=== PATIENT | female | born 1955 | race Caucasian/White ===

== ENCOUNTER 2016-07-05 20:10 | Emergency (ER) | payer OTHER ==
[2016-07-05] MEDS ORDERED: fentaNYL Inj 100 MCG/2 ML VIAL IVP ONE (20:27)
[2016-07-05] MEDS ORDERED: fentaNYL Inj 100 MCG/2 ML VIAL ONE (20:30)
[2016-07-05] MEDS ORDERED: ONDANSETRON 4 MG/2 ML VIAL ONE (20:30)
[2016-07-05] MEDS ORDERED: ONDANSETRON 4 MG/2 ML VIAL IVP ONE (20:35)
[2016-07-05 20:46] LABS: BASOPHILS # (AUTO) 0.05 10*3/UL; BASOPHILS % (AUTO) 0.6 % (0-1); EOSINOPHILS # (AUTO) 0.19 10*3/UL; EOSINOPHILS % (AUTO) 2.4 % (0-8); HEMOGLOBIN 16.5 g/dL (12.0-16.0); LYMPHOCYTES # (AUTO) 2.64 10*3/uL; MEAN CORPUSCULAR HEMOGLOBIN 30.3 PG (27-31); MEAN CORPUSCULAR HGB CONC 33.7 g/dL (33-37); MEAN CORPUSCULAR VOLUME 89.9 FL (81-99); MEAN PLATELET VOLUME 11.4 FL (7.4-12.2); MONOCYTES # (AUTO) 0.64 10*3/UL (0.3-0.8); MONOCYTES % (AUTO) 8.2 % (5-15); NEUTROPHILS # (AUTO) 4.22 10*3/UL; NEUTROPHILS % (AUTO) 54.5 % (50-80); RED BLOOD COUNT 5.45 10^6/uL (4.20-5.40)
[2016-07-05 20:49] LABS: PLATELET MORPHOLOGY COMMENT NORMAL MORPHOLOGY (NORM); RBC MORPHOLOGY COMMENT NORMAL MORPHOLOGY (NORM); WBC MORPHOLOGY COMMENT NORMAL MORPHOLOGY (NORM)
[2016-07-05 20:58] LABS: BLOOD UREA NITROGEN 14 mg/dL (7-22); CALCIUM 9.3 mg/dL (8.7-10.7); EST GLOMERULAR FILTRATION > 60 (>60 ml/min/1.73m(2)); SERUM ALBUMIN 3.8 g/dL (3.5-4.8)
--- NOTE | 2016-07-05 21:24 | PDOC ---
Gen Adult / Medical Screen HPI - General Chief Complaint: General Medical Stated Complaint: Right lower back pain Date Seen by Provider: 07/05/16 Time Seen by Provider: 21:05 Source: POSITIVE: Patient Exam Limitations: POSITIVE: Clinical condition Nurse's Notes Reviewed & Considered: Yes EMS Report Reviewed & Considered: Verbal - History of Present Illness Initial Comments: Vannessa is a 60-year-old female who presents to the emergency department for evaluation of pain. Patient reports that she was having pain mostly in the right flank. This seems to have started since a fall about one month prior. It 's been intermittent. It was worse today. Right sided. Radiates down. Stabbing. Sharp and severe. Patient put she was unable to get up today and called the ambulance for help getting up and they brought her to the emergency department. There are no relieving factors but it is worse with movement. Patient denies any dysuria urgency or frequency. Denies any hematuria. Patient denies any chest or abdominal pain. She does have a history of a long- standing hernia that is largely unchanged. The patient is a poor historian - Patient Home Medications Home Medications: Home Medications Diaper,Brief,Adult, Disposable [Adult Brief] 1 each MC PRN #1 each 10/08/15 Metoprolol Tartrate 0.5 tab PO QID #180 tab 10/08/15 Mometasone Furoate [Nasonex] 2 spr INASL DAILY #1 spr 12/10/15 Cyclobenzaprine HCl [Flexeril] 5 mg PO TID PRN #12 tablet 07/06/16 HYDROcodone/APAP 5/325 Tab [[place] 5/325 Tab] 1 tab PO Q6H PRN #12 tab 07/06/16 - Patient Allergies Allergies/Adverse Reactions: Allergies Allergy/AdvReac Type Severity Reaction Status Date / Time codeine Allergy hives Verified 07/05/16 20:26 Sulfa (Sulfonamide Allergy HIVES Verified 07/05/16 20:26 Antibiotics) Past Medical History - heen HEENT History: Denies History Cardiovascular History: Hypertension, Arrhythmia, Other (please comment) ( Peripheral vascular disease) Respiratory History: Denies History Gastrointestinal History: Denies History Genitourinary History: Denies History Endocrine History: Denies History Musculoskeletal History: Denies History Neurological History: Denies History Blood Disorders: Denies History Psychiatric History: Denies History Cancer History: Denies History History of MDRO: No Alcohol Use: None Substance Use Type: None Previous Surgical History: Yes Type / Date of Surgery: TUBAL Anesthesia Reactions: No Malignant Hyperthermia: No Significant Family History: No pertinent family hx Past Medical History Reviewed: Reviewed - Changes Made ROS - Limitations ROS Limitations: Clinical Condition Constitution: REPORTS: Denies Symptoms Cardiovascular: REPORTS: Denies Cardiac Symptoms Respiratory: REPORTS: Denies Resp Symptoms Neurological: REPORTS: Denies Neuro Symptoms Gastrointestinal: REPORTS: Denies GI Symptoms Endocrine: REPORTS: Denies Symptoms Musculoskeletal: REPORTS: Other (Right flank pain) Genitourinary: REPORTS: Denies Symptoms Eyes: REPORTS: Denies Symptoms ENT: REPORTS: Denies Symptoms Skin: REPORTS: Denies Skin Symptoms Immunologic: POSITIVE: Denies Symptoms Gen Adult/Medical Screen Exam - General Appearance General Appearance: POSITIVE: Anxious, Mild Distress - HEENT HEENT: POSITIVE: Head Inspection Nml, Eyes Inspection Nml, Pharynx Inspect. Nml - Pupils Pupil Size: 4 mm: Bilateral - Neck Neck: POSITIVE: Normal Inspection, Other (No tenderness to palpation). NEGATIVE : Stiff Neck - Respiratory Respiratory: POSITIVE: No Respiratory Distress, Breath Sounds Normal - Cardiovascular Cardiovascular: POSITIVE: Regular Rate & Rhythm, No Murmur, No Gallop - Abdomen Additional Abdominal Details: There is a large abdominal hernia. No tenderness to palpation. Normal bowel sounds. No rebound no guarding. - Back Back: POSITIVE: Other (There is tenderness to palpation of the right-sided paravertebral soft tissues. There is minimal tenderness to palpation of the midline lumbar spine. No tenderness to the thoracic spine.) - Neurological / Psychological Mental Status: POSITIVE: Other (Anxious. Strength and sensation equal in the lower extremities bilaterally. She does have decreased patellar and Achilles reflex bilaterally though equal.) - Skin Skin: POSITIVE: Normal Color, Warm, Other (Chronic venous changes in lower extremities bilaterally.) - Extremities Additional Extremities Details: There is slight asymmetry in leg length right is slightly shorter than the left. Patient has minimal discomfort to palpation of the right hip. There is good range of motion. No edema. Gen Adlt/Medical Scrn Progress - Results Reviewed by me Xrays/CTs/US Reviewed by me: Yes Lab Results Reviewed: Yes Lab Results:: Laboratory Results 07/05/16 07/06/16 Range/Units 20:42 00:10 WBC 7.76 (4.8-10.8) 10^3/uL RBC 5.45 H (4.20-5.40) 10^6/uL Hgb 16.5 H (12.0-16.0) g/dL Hct 49.0 H (37.0-47.0) % MCV 89.9 (81-99) FL MCH 30.3 (27-31) PG MCHC 33.7 (33-37) g/dL RDW Std Deviation 50.3 H (39-50) fL RDW Coeff of [place] 15.4 H (11.5-14.5) % Plt Count 142 (140-350) 10*3/uL MPV 11.4 (7.4-12.2) FL Immature Gran % (Auto) 0.3 (0-5) % Neut % (Auto) 54.5 (50-80) % Lymph % (Auto) 34.0 (10-50) % Graham % (Auto) 8.2 (5-15) % Eos % (Auto) 2.4 (0-8) % Baso % (Auto) 0.6 (0-1) % Immature Gran # (Auto) 0.02 10*3/UL Neut # (Auto) 4.22 10*3/UL Lymph # (Auto) 2.64 10*3/uL Graham # (Auto) 0.64 (0.3-0.8) 10*3/UL Eos # (Auto) 0.19 10*3/UL Baso # (Auto) 0.05 10*3/UL WBC Morphology Comment Normal morphology (NORM) Plt Morphology Comment Normal morphology (NORM) RBC Morph Comment Normal morphology (NORM) Sodium 137 (135-145) meq/L Potassium 4.2 (3.8-5.2) meq/L Chloride 108 (98-112) meq/L Carbon Dioxide 17 L (23-33) meq/L Anion Gap 12 (5-20) BUN 14 (7-22) mg/dL Creatinine 0.7 (0.50-1.20) mg/dL Estimated GFR > 60 (>60 ml/min/1.73m(2)) BUN/Creatinine Ratio 20.00 (6-20) Glucose 94 (78-110) mg/dL Calculated Osmolality 284.0 (267-292) mOsm/kg Calcium 9.3 (8.7-10.7) mg/dL Total Bilirubin 0.6 (0.3-1.2) mg/dL AST 13 (8-39) IU/L ALT 19 (9-52) IU/L Alkaline Phosphatase 113 (38-126) IU/L Total Protein 7.5 (6.1-8.0) g/dL Albumin 3.8 (3.5-4.8) g/dL Globulin 3.7 (2.50-4.10) g/dL Albumin/Globulin Ratio 1.00 L (1.3-2.0) mg/g Ur Collection Type Clean catch urine Urine Color Yellow Urine Clarity Sligthly cloudy (CLEAR) Urine pH 5.0 (5.0-8.5) Ur Specific [place] 1.015 (1.005-1.030) Urine Protein 100 (NEG) mg/dl Urine Glucose (UA) Negative (NEG) mg/dL Urine Ketones Trace (NEG) Urine Occult Blood Negative (NEG) Urine Nitrate Negative (NEG) Urine Bilirubin Small (NEG) Urine Urobilinogen 0.2 (0.2) mg/dL Ur Leukocyte Esterase Negative (NEG) Urine RBC 2-4 (NONE) /hpf Urine WBC 1-3 (NONE) Ur Squamous Epith Cells Rare (NONE) Ur Renal Epithelial Cell None (NONE) Urine Crystals None Urine Bacteria Rare (NONE) Urine Casts None Urine Mucus None (NONE) Urine Trichomonas None (NONE) Urine Yeast None (NONE) - Patient's Progress Pain Medication Addressed: POSITIVE: Yes MDM / ED Course: Vannessa is a 60-year-old female who presents to the emergency department with right-sided pain. This the pain seems to be largely subacute. Her vital signs are unremarkable. Examination demonstrates tenderness to the right back and the right hip. Differential diagnosis includes but is not limited to hip fracture, renal stone, pyelonephritis, musculoskeletal back pain. Patient's urinalysis does not demonstrate any evidence of infection or significant hematuria That would suggest a renal stone. X-rays of the hip were without evidence of fracture. Patient's laboratory studies were otherwise reassuring. Patient's CT scan of her lumbar spine does demonstrate some age and determinate compression deformity. There is also degenerative disc disease. Patient did have a CT scan of abdomen and pelvis without contrast and shows no evidence of renal stones. There are calcified gallstones but no evidence of acute cholecystitis. There is diverticulosis without evidence of acute diverticulitis. There are calcifications throughout the vascular system and a 3.6 cm aortic aneurysm. Fat-containing supraumbilically umbilical hernia was noted. Patient is treated here with fentanyl and morphine. On reevaluation she is feeling much better. Patient's pulses were dopplerable bilaterally the right was somewhat weaker than the left. On reevaluation patient's pain seemed to have completely resolved. Uncertain etiology for pain at this time. It does seem to be at least temporarily related to a fall that she had had. She does have some age indeterminate findings in her lumbar spine but no evidence of acute fracture. Patient appears to have persistent peripheral vascular disease that is noted in a prior abdominal CT scan with contrast and runoff. I did discuss with her about possible evaluation by vascular surgeon however patient indicates that she does not want any further treatment at this time other than pain control and wishes to be discharged from the emergency Department. Patient was discharged per her request. Patient Care Time - Estimated PCT Patient Care Time (In Minutes): 90 Vital Signs - VS Reviewed Vital Signs Reviewed: Yes Discharge Clinical Impression: Flank pain Discharge Disposition: Discharged to Home Condition: Good Prescriptions / Orders: Cyclobenzaprine HCl [Flexeril] 5 mg PO TID PRN #12 tablet PRN Reason: Pain HYDROcodone/APAP 5/325 Tab [[place] 5/325 Tab] 1 tab PO Q6H PRN #12 tab PRN Reason: Pain Patient Instructions Given at Discharge: Acute Low Back Pain (ED) Additional Instructions: Thank you for coming to the emergency department. Your studies do demonstrate degenerative disc changes in your back. In addition part of your symptoms may be related to peripheral vascular disease. We discussed potential referral to a vascular surgeon which you declined at this time. If you change your mind please discuss this with her primary care provider. Please use medications for discomfort as needed and return to the emergency department for any worsening symptoms. Follow Up With: MARY VAUGHAN [Primary Care Provider] -
[2016-07-05] MEDS ORDERED: MORPHINE SULFATE 4 MG/1 ML IVP ONE (22:03)
--- NOTE | 2016-07-05 22:12 | DI ---
HISTORY: Patient fell approximately four weeks ago. Right hip pain. COMPARISON: 12/16/2013. FINDINGS: Examination reveals mild demineralization and degenerative arthritic changes. There is no definite evidence of recent fracture or dislocation. IMPRESSION: 1. No acute fracture identified. If symptoms should persist, a follow-up examination is suggested. 2. Mild demineralization and degenerative arthritic changes.
--- NOTE | 2016-07-05 22:48 | DI ---
HISTORY: Flank pain. History of hernia. TECHNIQUE: Contiguous axial images of the abdomen and pelvis were obtained and submitted for interpr etation. FINDINGS: Ureters and bladder are unremarkable. No radiopaque renal or collecting system calculi. No evidence of obstructive uropathy. Further evaluation is significantly limited in the absence of oral and intravenous contrast. Normal CT appearance of the pancreas and right kidney. There is borderline hepatosplenomegaly. There are m ultiple calcified gallstones. There is no CT evidence of acute cholecystitis, though dedicated imagin g is recommended if there is clinical concern. There are multiple calcified splenic granulomata. Th ere is a hypoattenuating subcentimeter lesion in the interpolar region of the left kidney, too small to characterize. The bilateral adrenal glands are nodular and thickened. There is colonic diverticulosis without CT evidence of acute diverticulitis. Hollow viscus organs dem onstrate normal course and caliber. The appendix is within normal limits. There is no intraperitonea l free air or fluid. There are atheromatous aortoiliac calcifications with a 3.6 cm abdominal aortic aneurysm. Dedicated angiographic imaging is recommended if no priors are available for comparison. No abdominopelvic lymphadenopathy is present. The uterus and adnexa are unremarkable, though better evaluated with pelvic ultrasound. There is a 1.9 cm fat containing supraumbilical ventral abdominal wall hernia. There is a 3.8 cm fat containing umbilical hernia with internal fat stranding and calcif ication. The lung bases are clear. There is diffuse demineralization of the osseous structures with multilevel degenerative disc disease . There is transitional anatomy of S1 with a right transverse process and a vestigial disc. There is grade 1 anterolisthesis of L4 on L5 and L5 on S1. IMPRESSION: 1. Cholelithiasis without CT evidence of acute cholecystitis. A dedicated right upper quadrant ultras ound should be obtained if there is clinical concern. 2. Borderline hepatosplenomegaly. 3. Bilateral adrenal glands are nodular and thickened. 4. Colonic diverticulosis without CT evidence of acute diverticulitis. 5. Atheromatous aortoiliac calcifications with a 3.6 cm abdominal aortic aneurysm. Dedicated angiogra phic imaging is recommended if no priors are available for comparison.
--- NOTE | 2016-07-05 22:55 | DI ---
HISTORY: Patient fell approximately four weeks ago. Low back pain. TECHNIQUE: Contiguous axial images of the lumbar spine were obtained and submitted for interpretatio n. FINDINGS: There is diffuse demineralization of the osseous structures. There is anterior compression deformity of L1 which is new compared to a comparison CT angiogram dated 12/16/2013. Vertebral body heights are otherwise maintained with five non rib-bearing lumbar type vertebral bodies. There is tra nsitional S1 anatomy with a right transverse process and a vestigial S1/2 disc. There is grade 1 anterolisthesis of L4 on L5 and L5 on S1. This results in osseous central canal narr owing at the L4/5 level. Multilevel degenerative disc disease is present. Mild to moderate disc heig ht loss is noted throughout the imaged thoracolumbar spine. Early marginal anterior endplate osteophy kerrie are also present at multiple levels. Posterior endplate osteophyte formation results in osseous c entral canal narrowing at the T12/L1 and L1/2 levels. Facet arthrosis is present, most severe in the lower lumbar spine. Mild SI joint osteoarthritis is also present. Limited evaluation of the abdomen reveals nodular thickening of the bilateral adrenal glands. Atheromatous calcifications are present in the aorta with a 3.6 cm abdominal aortic aneurysm, better evaluated on the CT abdomen/pelvis from the same day. IMPRESSION: 1. L1 anterior compression deformity, new since the comparison examination from 2013. 2. Grade 1 anterolisthesis of L4 on L5 as well as L5 on S1, resulting in osseous central canal narrow ing at L4/5. 3. Multilevel degenerative disc disease.
[2016-07-06 00:25] LABS: BILIRUBIN,URINE SMALL (NEG); COLOR,URINE YELLOW; GLUCOSE, URINE (UA) NEGATIVE (NEG); NITRATE,URINE NEGATIVE (NEG); OCCULT BLOOD,URINE NEGATIVE (NEG); PROTEIN,URINE 100 mg/dl (NEG); UROBILINOGEN,URINE 0.2 mg/dL (0.2)
[2016-07-06 00:31] LABS: CLARITY,URINE SLIGTHLY CLOUDY (CLEAR)
[2016-07-06 00:32] LABS: URINE SAMPLE TYPE CLEAN CATCH URINE
[2016-07-06 00:33] LABS: BACTERIA,URINE RARE; SQUAMOUS EPITHELIAL CELL,UR RARE
[2016-07-06 04:40] VITALS: TEMP 98
[2016-07-06 04:46] VITALS: RESP 18
== END 2016-07-06 01:20 | disposition home or self-care (01) ==
LOC: ER 20:10
DX: R10.31 Right lower quadrant pain (principal); M54.5 Low back pain; M51.36 Other intervertebral disc degeneration, lumbar region
CPT/HCPCS: 72131; 73502; 74176; 80053; 81001; 85025; 96374; 96375; 99283 ×2; J3010; J2270; J2405

== ENCOUNTER 2016-08-09 14:43 | Day surgery (SDC) | payer OTHER ==
[2016-08-09] MEDS ORDERED: Sodium Chloride 0.9% 1,000 ML PRIMARY IV ONE (15:05)
[2016-08-09] MEDS ORDERED: NORMAL SALINE 10 ML SYRINGE FLUSH IVP PRN (15:05)
[2016-08-09 15:35] LABS: BASOPHILS # (AUTO) 0.15 10*3/UL; BASOPHILS % (AUTO) 1.6 % (0-1); EOSINOPHILS # (AUTO) 0.14 10*3/UL; EOSINOPHILS % (AUTO) 1.5 % (0-8); HEMATOCRIT 45.6 % (37.0-47.0); LYMPHOCYTES # (AUTO) 1.44 10*3/uL; MEAN CORPUSCULAR HEMOGLOBIN 29.8 PG (27-31); MEAN CORPUSCULAR HGB CONC 32.9 g/dL (33-37); MEAN CORPUSCULAR VOLUME 90.5 FL (81-99); MEAN PLATELET VOLUME 10.6 FL (7.4-12.2); MONOCYTES # (AUTO) 0.69 10*3/UL (0.3-0.8); MONOCYTES % (AUTO) 7.5 % (5-15); NEUTROPHILS # (AUTO) 6.75 10*3/UL; NEUTROPHILS % (AUTO) 73.4 % (50-80); RED BLOOD COUNT 5.04 10^6/uL (4.20-5.40)
[2016-08-09 15:44] LABS: BLOOD UREA NITROGEN 14 mg/dL (7-22); CALCIUM 9.1 mg/dL (8.7-10.7); EST GLOMERULAR FILTRATION > 60 (>60 ml/min/1.73m(2)); SERUM ALBUMIN 3.4 g/dL (3.5-4.8)
[2016-08-09] MEDS ORDERED: fentaNYL Inj 100 MCG/2 ML VIAL IVP ONE (15:48)
[2016-08-09 15:49] LABS: PLATELET MORPHOLOGY COMMENT NORMAL MORPHOLOGY (NORM); RBC MORPHOLOGY COMMENT NORMAL MORPHOLOGY (NORM); WBC MORPHOLOGY COMMENT NORMAL MORPHOLOGY (NORM)
[2016-08-09] MEDS ORDERED: fentaNYL Inj 250 MCG/5 ML VIAL ONE (16:51)
[2016-08-09] MEDS ORDERED: MIDAZOLAM 5 MG/1 ML ONE (16:51)
[2016-08-09] MEDS ORDERED: LIDOCAINE MPF 2% - 5 ML (20 MG/1 ML) ONE (16:52)
--- NOTE | 2016-08-09 16:56 | PDOC ---
History and Physical - History of Present Illness Date and Time of Service: 08/09/2016 at 1648 Chief Complaint: I have an infection, buttocks History of Present Illness: This is a 60-year-old female who has had pain and her right Botox for 4-5 days. Patient states his progress is being and worse. It started draining today. She states originally originated right next to her anus has now became larger and moved upwards. She states that she has coronary artery disease only. Past Medical History Medical History: Coronary artery disease. Peripheral vascular disease. Dependent rubor. Smoking. Hypercholesterolemia Tobacco Use: Current Every Day Smoker Substance Use Type: None Medication / Allergies Home Medications: Home Medications Medication Instructions Recorded Confirmed Type Diaper,Brief,Adult, Disposable 1 each MC PRN #1 each 10/08/15 08/09/16 Clinic [Adult Brief] Metoprolol Tartrate 0.5 tab PO QID #180 tab 10/08/15 08/09/16 Clinic Mometasone Furoate [Nasonex] 2 spr INASL DAILY #1 spr 12/10/15 08/09/16 Clinic Allergies/Adverse Reactions: Allergies Allergy/AdvReac Type Severity Reaction Status Date / Time codeine Allergy hives Verified 08/09/16 14:56 Sulfa (Sulfonamide Allergy HIVES Verified 08/09/16 14:56 Antibiotics) Review of Systems - Constitutional Constitutional: REPORTS: General Health Poor - Integumentary Integumentary: REPORTS: Superficial Wound - Respiratory Respiratory: REPORTS: Negative System Review - Cardiovascular Cardiovascular: REPORTS: Other (Patient has cardiac disease. She really can't tell me what it is. Patient also says she has peripheral vascular disease his legs turn purple) Exam - Vitals Vital Signs: Vital Signs Temperature 97 F Temperature Source Temporal Artery Scan Pulse Rate [Pulse Oximeter] 54 Respiratory Rate 20 Blood Pressure [Right Arm] 152/82 Pulse Ox 96 Oxygen Delivery Method Room Air Height 5 ft 8 in Weight 121.109 kg - General General Appearance: POSITIVE: No Acute Distress, Cooperative - Eye Eye Exam: POSITIVE: EOMI - Neck Neck Exam: POSITIVE: Full ROM, No Tenderness - Respiratory Respiratory Exam: POSITIVE: Clear to Auscultation - Bilaterally - Cardiovascular Cardiovascular Exam: POSITIVE: RRR - Rectal Rectal Exam: POSITIVE: Tenderness Additional Rectal Exam Details: Patient is a large perianal abscess Results - Labs CBC and BMP: 08/09/16 15:15 08/09/16 15:15 Labs - Last 24 Hours: Laboratory Results 08/09/16 Range/Units 15:15 WBC 9.20 (4.8-10.8) 10^3/uL RBC 5.04 (4.20-5.40) 10^6/uL Hgb 15.0 (12.0-16.0) g/dL Hct 45.6 (37.0-47.0) % MCV 90.5 (81-99) FL MCH 29.8 (27-31) PG MCHC 32.9 L (33-37) g/dL RDW Std Deviation 52.7 H (39-50) fL RDW Coeff of [place] 16.1 H (11.5-14.5) % Plt Count 162 (140-350) 10*3/uL MPV 10.6 (7.4-12.2) FL Immature Gran % (Auto) 0.3 (0-5) % Neut % (Auto) 73.4 (50-80) % Lymph % (Auto) 15.7 (10-50) % [place] % (Auto) 7.5 (5-15) % Eos % (Auto) 1.5 (0-8) % Baso % (Auto) 1.6 H (0-1) % Immature Gran # (Auto) 0.03 10*3/UL Neut # (Auto) 6.75 10*3/UL Lymph # (Auto) 1.44 10*3/uL [place] # (Auto) 0.69 (0.3-0.8) 10*3/UL Eos # (Auto) 0.14 10*3/UL Baso # (Auto) 0.15 10*3/UL WBC Morphology Comment Normal morphology (NORM) Plt Morphology Comment Normal morphology (NORM) RBC Morph Comment Normal morphology (NORM) Sodium 141 (135-145) meq/L Potassium 3.5 L (3.8-5.2) meq/L Chloride 110 (98-112) meq/L Carbon Dioxide 21 L (23-33) meq/L Anion Gap 10 (5-20) BUN 14 (7-22) mg/dL Creatinine 0.8 (0.50-1.20) mg/dL Estimated GFR > 60 (>60 ml/min/1.73m(2)) BUN/Creatinine Ratio 17.50 (6-20) Glucose 92 (78-110) mg/dL Calculated Osmolality 292.0 (267-292) mOsm/kg Calcium 9.1 (8.7-10.7) mg/dL Total Bilirubin 0.8 (0.3-1.2) mg/dL AST 11 (8-39) IU/L ALT 21 (9-52) IU/L Alkaline Phosphatase 103 (38-126) IU/L Total Protein 6.9 (6.1-8.0) g/dL Albumin 3.4 L (3.5-4.8) g/dL Globulin 3.5 (2.50-4.10) g/dL Albumin/Globulin Ratio 0.90 L (1.3-2.0) mg/g Assessment and Plan - Patient Problems (1) Abscess, perianal Current Visit: Yes Status: Acute - Assessment / Plan Additional Assessment/Plan Details: Patient need I&D with packing of the abscess. This is explained to her. She understands the risk and benefits of the procedure. She will not consent to a spinal anesthetic. She is a short fat neck therefore she is not a good candidate for sedation as can easily lose the airway. Therefore she'll go under general anesthetic.
[2016-08-09] MEDS ORDERED: Lactated Ringers 1,000 ML PRIMARY IV ONE (17:20)
--- NOTE | 2016-08-09 17:33 | GEN.OPNOTE ---
Operative Note Surgery Date: 08/09/16 Preoperative Diagnosis: Perianal abscess Postoperative Diagnosis: Perianal abscess Procedure: I&D of a perianal abscess Surgeon: Desmond Mohamud MD Anesthesia Provider: Tyson Dietz CRNA Anesthesia Type: General Estimated Blood Loss (mL): 5 Fluids: LR please see anesthesia notes in EMR Indications: Patient has a large perianal abscess that has spontaneously drained but not adequately drained Operative Summary: Patient is brought in operative room. Placed supine position. Given general tracheal anesthesia. Placed in dorsolithotomy position. Prepped draped sterile fashion. Timeout performed per protocol. I isolated the draining hole and then enlarged the incision and made crucifix Tielle incision. The lesion asked she said to the perianal area. This was then packed with medical grade honey and gauze. Patient tolerated procedure well the were no problems. Patient Problems - Patient Problem List (1) Abscess, perianal Current Visit: Yes Status: Acute
[2016-08-09] MEDS ORDERED: KETOROLAC 30 MG/1 ML VIAL IVP ONE (18:00)
[2016-08-09] MEDS ORDERED: KETOROLAC 30 MG/1 ML VIAL ONE (18:01)
[2016-08-09 18:38] VITALS: RESP 22; TEMP 97.3
--- NOTE | 2016-08-09 23:50 | PDOC ---
General Adult HPI - General Chief Complaint: Laceration / Wound Stated Complaint: abscess on right buttock Date Seen by Provider: 08/09/16 Time Seen by Provider: 15:00 Source: POSITIVE: Patient, Spouse Exam Limitations: POSITIVE: No limitations Nurse's Notes Reviewed & Considered: Yes - History of Present Illness Initial Comment: The patient is a 60-year-old female. She is brought to the emergency room by her . She states that for the past 4-5 days she has had a "boil"on the medial aspect of her right buttock. She has difficulty sitting and walking due to pain from this lesion. She's noticed some drainage from the abscess over the last day or so. Patient does not think she's been running a fever and has had no chills. She is a heavy smoker and has COPD and is supposed to be on oxygen, 2-1/2 L continuously, but she is not not been doing so because she states the nasal prongs cause her to have some nosebleeds. History of atrial fibrillation. She is on metoprolol and aspirin. She is morbidly obese, weighing in excess of 260 pounds. Have you received a tetanus shot in the past 10 years?: Unknown Body Location Affected: REPORTS: Other (Abscess right buttock) Timing: REPORTS: Gradual, Getting Worse Duration: <1 week (4-5 days) Severity: Moderate Quality: REPORTS: "Pain", Tenderness Context: REPORTS: None Modifying Factors: improves with: Nothing Similar Symptoms Previously: Yes (had a similar abscess several years ago.) Recent Care Received: REPORTS: Denies Any Prior Injuries Related to Current Complaint?: No - Patient Home Medications Home Medications: Home Medications Diaper,Brief,Adult, Disposable [Adult Brief] 1 each MC PRN #1 each 10/08/15 Metoprolol Tartrate 0.5 tab PO QID #180 tab 10/08/15 Mometasone Furoate [Nasonex] 2 spr INASL DAILY #1 spr 12/10/15 Clotrimazole/Betamet Diprop [Lotrisone Cream] 45 gm TP BID #1 cream.gm. Hydrocodone/Acetaminophen [Viper 7.5-325 Tablet] 1 each PO Q4H PRN #20 tablet - Patient Allergies Allergies/Adverse Reactions: Allergies Allergy/AdvReac Type Severity Reaction Status Date / Time codeine Allergy hives Verified 08/09/16 14:56 Sulfa (Sulfonamide Allergy HIVES Verified 08/09/16 14:56 Antibiotics) Past Medical History - heen HEENT History: Denies History Cardiovascular History: Hypertension, Arrhythmia, Other (please comment) Additional Cardiovasular History: A FIB Respiratory History: Home Oxygen Use Additional Respiratory History: DENIES COPD Gastrointestinal History: Denies History Additional Gastrointestinal History: Hx of extremely large and current umbilical hernia. Genitourinary History: Denies History Endocrine History: Denies History Musculoskeletal History: Denies History Prosthesis or Implant: No Additional Musculoskeletal History: PT DENIES BUT HAS ATROPHIED LE'S WITH PURPISH COLORING Neurological History: Denies History Blood Disorders: Denies History Psychiatric History: Denies History Cancer History: Denies History In Past Year Been Physically Harmed or Verbally Threatened: No History of MDRO: No Tobacco Use: Current Every Day Smoker Alcohol Use: None Substance Use Type: None Previous Surgical History: Yes Type / Date of Surgery: TUBAL Anesthesia Reactions: No Malignant Hyperthermia: No Significant Family History: No pertinent family hx Past Medical History Reviewed: Reviewed - No Changes ROS - Limitations ROS Limitations: No Limitations, Other (please comment) (Morbidly obese) Constitution: REPORTS: Denies Symptoms Cardiovascular: REPORTS: Denies Cardiac Symptoms Respiratory: REPORTS: Denies Resp Symptoms Neurological: REPORTS: Denies Neuro Symptoms Gastrointestinal: REPORTS: Denies GI Symptoms Endocrine: REPORTS: Denies Symptoms Musculoskeletal: REPORTS: Denies MS Symptoms Genitourinary: REPORTS: Denies Symptoms Eyes: REPORTS: Denies Symptoms ENT: REPORTS: Denies Symptoms Skin: REPORTS: Other (Abscess medial aspect of right buttock) Lympathic: REPORTS: Denies Lympathic Symptoms Immunologic: POSITIVE: Denies Symptoms Psychiatric: POSITIVE: Denies Psych Symptoms General Adult Exam - General Appearance General Appearance: POSITIVE: Alert, Cooperative, No Acute Distress, No Evidence of Trauma - HEENT HEENT: POSITIVE: Head Inspection Nml, Eyes Inspection Nml, Ears Inspection Nml, Nose Inspection Nml, Oral/Dental Inspect. Nml, Pharynx Inspect. Nml, PERRL, EOMI - Pupils Pupil Size: 3 mm: Bilateral (PERRLA) - Neck Neck: POSITIVE: Normal Inspection, Thyroid Normal - Respiratory Respiratory: POSITIVE: No Respiratory Distress, Breath Sounds Normal, Chest Non- Tender - Cardiovascular Cardiovascular: POSITIVE: No Murmur, No Gallop, PMI Normal, Irregularly Irreg. Rhythm (Mildly irregular; heart rate 54/m). NEGATIVE: Regular Rate & Rhythm Peripheral Pulses: Radial (R): 2+, Radial (L): 2+ - Abdomen Abdomen: Soft: (All Quadrants), Normal Bowel Sounds: (All Quadrants), Denies Tenderness: (All Quadrants), No Splenomegaly: (All Quadrants), No Hepatomegaly: (All Quadrants), No Guarding: (All Quadrants), No Rebound: (All Quadrants), No Palpable Pulse: (All Quadrants), No Palpabale Mass: (All Quadrants), No Distention: (All Quadrants), No Rigidity: (All Quadrants) - Back Back: POSITIVE: Normal Inspection - Skin Skin: POSITIVE: Other (Pneumonia will heal dermatitis, intertrigo, beneath her breasts and pannus. Large fluctuant abscess medial aspect of right buttock) - Extremities Extremity: Non-Tender: (All Extremities), Normal ROM: (All Extremities), Normal Inspection: (All Extremities) - Neurological / Psychological Neurological: POSITIVE: Affect Apporpriate, Oriented X3, teasel setter Normal As Tested, Motor Normal, Sensation Normal Images - Complete Complete: 1 - Large abscess medial aspect of right buttock General Adult Progress - Results Reviewed by me Lab Results Reviewed: Yes Lab Results:: Laboratory Results 08/09/16 Range/Units 15:15 WBC 9.20 (4.8-10.8) 10^3/uL RBC 5.04 (4.20-5.40) 10^6/uL Hgb 15.0 (12.0-16.0) g/dL Hct 45.6 (37.0-47.0) % MCV 90.5 (81-99) FL MCH 29.8 (27-31) PG MCHC 32.9 L (33-37) g/dL RDW Std Deviation 52.7 H (39-50) fL RDW Coeff of [place] 16.1 H (11.5-14.5) % Plt Count 162 (140-350) 10*3/uL MPV 10.6 (7.4-12.2) FL Immature Gran % (Auto) 0.3 (0-5) % Neut % (Auto) 73.4 (50-80) % Lymph % (Auto) 15.7 (10-50) % [place] % (Auto) 7.5 (5-15) % Eos % (Auto) 1.5 (0-8) % Baso % (Auto) 1.6 H (0-1) % Immature Gran # (Auto) 0.03 10*3/UL Neut # (Auto) 6.75 10*3/UL Lymph # (Auto) 1.44 10*3/uL [place] # (Auto) 0.69 (0.3-0.8) 10*3/UL Eos # (Auto) 0.14 10*3/UL Baso # (Auto) 0.15 10*3/UL WBC Morphology Comment Normal morphology (NORM) Plt Morphology Comment Normal morphology (NORM) RBC Morph Comment Normal morphology (NORM) Sodium 141 (135-145) meq/L Potassium 3.5 L (3.8-5.2) meq/L Chloride 110 (98-112) meq/L Carbon Dioxide 21 L (23-33) meq/L Anion Gap 10 (5-20) BUN 14 (7-22) mg/dL Creatinine 0.8 (0.50-1.20) mg/dL Estimated GFR > 60 (>60 ml/min/1.73m(2)) BUN/Creatinine Ratio 17.50 (6-20) Glucose 92 (78-110) mg/dL Calculated Osmolality 292.0 (267-292) mOsm/kg Calcium 9.1 (8.7-10.7) mg/dL Total Bilirubin 0.8 (0.3-1.2) mg/dL AST 11 (8-39) IU/L ALT 21 (9-52) IU/L Alkaline Phosphatase 103 (38-126) IU/L Total Protein 6.9 (6.1-8.0) g/dL Albumin 3.4 L (3.5-4.8) g/dL Globulin 3.5 (2.50-4.10) g/dL Albumin/Globulin Ratio 0.90 L (1.3-2.0) mg/g - Patient's Progress Pain Medication Addressed: POSITIVE: Yes (Fentanyl, 25 mg IV) School/Work Release Addressed: POSITIVE: Not Applicable Re-Examine Time: 15:45 Re-Examine Comment: Due to the size of the abscess, it is felt that the patient should probably have this abscess drained in the OR. Case discussed with Dr. Dubon, who will take the patient to the OR for this purpose. Status: POSITIVE: Unchanged Antibiotics Given: No - Consult Consult (If Yes, Name of Consulting MD & Time Called): Yes (Dr. Dubon, surgeon [id number],) Consulting MD will see pt:: POSITIVE: In ED Counseled: POSITIVE: Patient, Family, RE: Lab Results, RE: DX, RE: Need for F/U Patient Care Time - Estimated PCT Patient Care Time (In Minutes): 40 Vital Signs - Recent Vital Signs Vital Signs: Vital Signs (Last 8 hours) Temp Pulse Resp BP 08/09/16 18:25 97.3 F 08/09/16 18:00 97.3 F 57 L 22 166/77 08/09/16 17:45 97.2 F 63 21 155/88 08/09/16 17:33 97.2 F 70 22 134/77 - VS Reviewed Vital Signs Reviewed: Yes Discharge Clinical Impression: Abscess, perianal Discharge Disposition: Transferred to OR Condition: Stable
== END 2016-08-09 18:25 | disposition home or self-care (01) ==
LOC: ER 14:43 → SDSC 16:30
PROVIDERS: ATTEND Surgery
DX: K61.0 Anal abscess (principal)
CPT/HCPCS: 36415; 46050; 80053; 85025; 87040; 99284 ×2; J1885; J2704; J3010; J2001; J2250; J7030; J7120